=== PATIENT | male | born 1955 | race African-American/Black ===

== ENCOUNTER 2018-10-23 06:45 | Day surgery (SDC) | payer MEDICAID ==
[~2018-10-23] VITALS: Ht 190.5 cm; Wt 128.8 kg
[2018-10-23] MEDS ORDERED: MIDAZOLAM 2 MG/2 ML VIAL ONE (08:12)
[2018-10-23] MEDS ORDERED: fentaNYL 0.05 MG/ML VIAL ONE (08:12)
== END 2018-10-23 09:35 | disposition home or self-care (01) ==
LOC: MDS 06:45 → MMU 06:51 → MDS 09:35
PROVIDERS: ATTEND Internal Medicine Gastroenterology
DX: K22.8 Other specified diseases of esophagus (principal); J37.0 Chronic laryngitis; K21.9 Gastro-esophageal reflux disease without esophagitis; E66.9 Obesity, unspecified; J45.909 Unspecified asthma, uncomplicated; Z88.1 Allergy status to other antibiotic agents; Z79.899 Other long term (current) drug therapy; Z98.890 Other specified postprocedural states; Z68.35 Body mass index [BMI] 35.0-35.9, adult
CPT/HCPCS: 43235; J2250; J3010